=== PATIENT | female | born 1955 | race Caucasian/White ===

== ENCOUNTER 2020-11-23 07:44 | Emergency (ER) | payer OTHER ==
[~2020-11-23] VITALS: Ht 154.9 cm; Wt 75.0 kg
[2020-11-23 07:47] VITALS: BP 165/78
[2020-11-23] MEDS ORDERED: BUPIVACAINE 0.25% ONE (08:13)
[2020-11-23] MEDS ORDERED: LIDOCAINE-MPF 2% ,5ML ONE (08:13)
[2020-11-23] MEDS ORDERED: NEOSPORIN OINT. PKT 1 PACKET ONE (08:18)
[2020-11-23] MEDS ORDERED: DIPH,PERTUSS(ACELL),TET VAC/PF 0.5 ML IM-VACC ONE ×2 (08:30→09:55)
[2020-11-23] MEDS ORDERED: BUPIVACAINE/PF 0.25% INFIL ONE (08:30)
[2020-11-23] MEDS ORDERED: LIDOCAINE-MPF 1%, 5ML INFIL ONE (08:30)
[2020-11-23] MEDS ORDERED: MORPHINE SULFATE 4 MG/ML, 1ML ONE (09:07)
[2020-11-23] MEDS ORDERED: ONDANSETRON 2MG/ML, 2ML ONE (09:07)
== END 2020-11-23 10:25 | disposition home or self-care (01) ==
LOC: ED 09:01
DX: S62.643A Nondisplaced fracture of proximal phalanx of left middle finger, initial encounter for closed fracture (principal); S63.283A Dislocation of proximal interphalangeal joint of left middle finger, initial encounter; S50.01XA Contusion of right elbow, initial encounter; W01.0XXA Fall on same level from slipping, tripping and stumbling without subsequent striking against object, initial encounter; Y93.89 Activity, other specified; Y92.009 Unspecified place in unspecified non-institutional (private) residence as the place of occurrence of the external cause; Y99.8 Other external cause status
CPT/HCPCS: 26770; 90471; 90715; 99284